=== PATIENT | male | born 1950 | race Caucasian/White ===

== ENCOUNTER 2023-08-12 08:04 | Outpatient (RCR) | payer MEDICARE, OTHER, SELFPAY | END 2023-08-19 12:58 | disposition home or self-care (01) | LOC: HO.WCC 08:04 | PROVIDERS: PCP Nurse Practitioner Family; Visit Provider Physician Assistant | DX: E11.621 Type 2 diabetes mellitus with foot ulcer (principal); L97.512 Non-pressure chronic ulcer of other part of right foot with fat layer exposed; L84 Corns and callosities; M20.42 Other hammer toe(s) (acquired), left foot; E11.40 Type 2 diabetes mellitus with diabetic neuropathy, unspecified; I50.40 Unspecified combined systolic (congestive) and diastolic (congestive) heart failure; I48.20 Chronic atrial fibrillation, unspecified; Z79.01 Long term (current) use of anticoagulants; Z79.84 Long term (current) use of oral hypoglycemic drugs; Z89.421 Acquired absence of other right toe(s) | CPT/HCPCS: 11042; 99212 ==

== ENCOUNTER 2024-04-20 10:30 | Outpatient (RCR) | payer MEDICARE, OTHER, SELFPAY | END 2024-05-07 13:35 | disposition home or self-care (01) | LOC: HO.WCC 10:30 | PROVIDERS: PCP Nurse Practitioner Family; Visit Provider Surgery | DX: E11.621 Type 2 diabetes mellitus with foot ulcer (principal); L97.422 Non-pressure chronic ulcer of left heel and midfoot with fat layer exposed | CPT/HCPCS: 11042; 99212 ==

== ENCOUNTER 2024-09-07 08:40 | Outpatient (RCR) | payer MEDICARE, OTHER, SELFPAY | END 2024-11-03 14:19 | disposition home or self-care (01) | LOC: HO.WCC 08:40 | PROVIDERS: PCP Nurse Practitioner Family; Visit Provider Surgery | DX: E11.621 Type 2 diabetes mellitus with foot ulcer (principal); L97.512 Non-pressure chronic ulcer of other part of right foot with fat layer exposed; L97.522 Non-pressure chronic ulcer of other part of left foot with fat layer exposed; E11.40 Type 2 diabetes mellitus with diabetic neuropathy, unspecified; I50.9 Heart failure, unspecified; I48.91 Unspecified atrial fibrillation; Z79.4 Long term (current) use of insulin | CPT/HCPCS: 97597; 99213 ==